=== PATIENT | male | born 1995 | race African-American/Black ===

== ENCOUNTER 2021-07-21 15:11 | Emergency (ER) | payer OTHER ==
[~2021-07-21] VITALS: Ht 193 cm; Wt 59.0 kg
[2021-07-21 16:14] LABS: CLARITY URINE CLEAR (CLEAR); COLOR URINE YELLOW (YELLOW); PH URINE 6.5 (4.5-8.0); SPECIFIC GRAVITY URINE 1.016 (1.005-1.030)
[2021-07-21 16:15] LABS: KETONES URINE NEGATIVE (NEGATIVE); NITRITE URINE NEGATIVE (NEGATIVE); OCCULT BLOOD URINE NEGATIVE (NEGATIVE); PROTEIN URINE NEGATIVE (NEGATIVE); UROBILINOGEN URINE 0.2 E.U./dL (0.2-1.0)
[2021-07-21 16:16] LABS: LEUKOCYTE ESTERASE URINE NEGATIVE (NEGATIVE)
[2021-07-21] MEDS ORDERED: CEFTRIAXONE SODIUM 500 MG/VIAL IM NR (17:30)
[2021-07-21] MEDS ORDERED: LIDOCAINE HCL 1% 10 MG/ML 10ML VIAL INJ NR (17:30)
[2021-07-21] MEDS ORDERED: KETOROLAC 60MG/2ML VIAL IM STA (17:32)
[2021-07-21] MEDS ORDERED: NAPR-681 PO (18:08)
[2021-07-21] MEDS ORDERED: DOXY100T28 PO (18:08)
[2021-07-21 19:03] VITALS: BP 123/68
[2021-07-25 04:07] LABS: NEISSERIA GONORRHOEAE NAA Negative (Negative)
== END 2021-07-21 19:05 | disposition home or self-care (01) ==
LOC: ER 15:11
DX: N43.3 Hydrocele, unspecified (principal)
CPT/HCPCS: 76870; 81003; 87491; 87591; 93976; 96372; 99284; J0696; J1885